=== PATIENT | female | born 1995 | race African-American/Black ===

== ENCOUNTER 2018-12-26 23:56 | Emergency (ER) | payer OTHER ==
[~2018-12-26] VITALS: Ht 142.2 cm; Wt 63.5 kg
[~2018-12-26 23:56] MED LIST: HYDROXYZINE HCL25 M1 PO; IBUPROFEN 600600 M1 PO; XANAX 0.5 MG0.5 M1 PO
[2018-12-27] MEDS ORDERED: AMOXICILLIN 50500 M1 PO (00:59)
[2018-12-27 01:19] VITALS: BP 135/80
== END 2018-12-27 01:21 | disposition home or self-care (01) ==
LOC: ER 23:56
DX: J02.0 Streptococcal pharyngitis (principal); F41.9 Anxiety disorder, unspecified; Z87.891 Personal history of nicotine dependence; Z88.5 Allergy status to narcotic agent